=== PATIENT | male | born 1985 | race Caucasian/White ===

== ENCOUNTER 2024-04-25 21:45 | Emergency (ER) | payer SELFPAY ==
[~2024-04-25] VITALS: Ht 170.2 cm; Wt 77.1 kg
[~2024-04-25 21:45] MED LIST: CYCL10 PO; IBUP600 PO; Ultram50 MG PO
[2024-04-25 22:07] VITALS: BP 139/75
[2024-04-25] MEDS ORDERED: CEPH500 PO (22:56)
[2024-04-25] MEDS ORDERED: Cephalexin Monohydrate 500 MG Cap PO ONE (23:00)
== END 2024-04-25 22:59 | disposition home or self-care (01) ==
LOC: ER 21:45
DX: L03.114 Cellulitis of left upper limb (principal); M41.9 Scoliosis, unspecified; Z87.891 Personal history of nicotine dependence; Z88.2 Allergy status to sulfonamides; Z79.899 Other long term (current) drug therapy
CPT/HCPCS: 99282